=== PATIENT | male | born 1970 | race American Indian/Alaskan Native ===

== ENCOUNTER 2020-01-20 08:24 | Outpatient (CLI) | payer OTHER ==
[2020-01-20 09:02] LABS: INR 1.58 (0.87-1.13)
[2020-01-20 09:19] LABS: Bilirubin,Direct 1.7 mg/dL (0-0.2)
== END 2020-01-20 08:25 | disposition home or self-care (01) ==
LOC: LAB 08:24
PROVIDERS: ATTEND Internal Medicine
DX: K74.60 Unspecified cirrhosis of liver (principal)
CPT/HCPCS: 36415; 82247; 82248; 85610